=== PATIENT | female | born 1955 | race Caucasian/White ===

== ENCOUNTER → 2022-04-02 14:57 | Outpatient (BNVA) | payer MEDICARE, SELFPAY | PROVIDERS: PCP Family Medicine; Visit Provider Surgery | DX: N63.20 Unspecified lump in the left breast, unspecified quadrant (principal) | CPT/HCPCS: 99203 ==

== ENCOUNTER 2022-04-08 13:31 | Outpatient (CLI) | payer MEDICARE, SELFPAY ==
--- NOTE | 2022-04-08 | US_ITS ---
WS: [id number] BILATERAL 3D TOMOSYNTHESIS DIGITAL DIAGNOSTIC MAMMOGRAPHY WITH CAD CLINICAL INFORMATION: N63.20 - Unspecified lump in the left breast, unspecified... TECHNIQUE: Bilateral CC, MLO, and ML views. FINDINGS: Scattered fibroglandular densities bilaterally. Irregular heterogeneous spiculated mass in the upper outer LEFT breast in the area of palpable concern. This measures approximately 3.2 x 2.9 x 5.2 cm extends from the 1 to 3:00 position. Spiculated mass involves a large portion portion of the upper outer quadrant. Ultrasound described below. No visualized abnormalities RIGHT breast. ULTRASOUND BREAST BILATERAL TECHNIQUE: Ultrasound bilateral breast focused area of concern. CLINICAL INFORMATION: N63.20 - Unspecified lump in the left breast, unspecified... FINDINGS: RIGHT BREAST: No abnormalities RIGHT breast 4 to 6:00 position. LEFT BREAST: Large shadowing irregular hypoechoic LEFT breast mass extending from the 1-3 o'clock positions measuring 3.4 x 2.2 x 3.6 cm centered at the 2:00 position. Findings highly suspicious for neoplasm. No abnormal appearing lymph nodes in the LEFT axilla. MM/[place] [id number] IMPRESSION: BI-RADS: 5-Highly Suggestive of Malignancy FOLLOW UP: US Guided Biopsy Recommended Recommend ultrasound-guided biopsy LEFT breast mass. Dictated By: Alexander Olivera MD Signed By: Alexander Olivera MD Signed Date/Time: 04/09/22 1236 MTDD
--- NOTE | 2022-04-08 13:36 | US_ITS ---
WS: [id number] See diagnostic mammography report
--- NOTE | 2022-04-08 13:36 | MM_ITS ---
WS: [id number] BILATERAL 3D TOMOSYNTHESIS DIGITAL DIAGNOSTIC MAMMOGRAPHY WITH CAD CLINICAL INFORMATION: N63.20 - Unspecified lump in the left breast, unspecified... TECHNIQUE: Bilateral CC, MLO, and ML views. FINDINGS: Scattered fibroglandular densities bilaterally. Irregular heterogeneous spiculated mass in the upper outer LEFT breast in the area of palpable concern. This measures approximately 3.2 x 2.9 x 5.2 cm ext ends from the 1 to 3:00 position. Spiculated mass involves a large portion portion of the upper outer quadrant. Ultrasound described below. No visualized abnormalities RIGHT breast. ULTRASOUND BREAST BILATERAL TECHNIQUE: Ultrasound bilateral breast focused area of concern. CLINICAL INFORMATION: N63.20 - Unspecified lump in the left breast, unspecified... FINDINGS: RIGHT BREAST: No abnormalities RIGHT breast 4 to 6:00 position. LEFT BREAST: Large shadowing irregular hypoechoic LEFT breast mass extending from the 1-3 o'clock pos itions measuring 3.4 x 2.2 x 3.6 cm centered at the 2:00 position. Findings highly suspicious for supriya plasm. No abnormal appearing lymph nodes in the LEFT axilla. MM/[place] [id number] IMPRESSION: BI-RADS: 5-Highly Suggestive of Malignancy FOLLOW UP: US Guided Biopsy Recommended Recommend ultrasound-guided biopsy LEFT breast mass.
== END 2022-04-08 13:32 | disposition home or self-care (01) ==
LOC: RAD 13:31
PROVIDERS: PCP Family Medicine; Visit Provider Family Medicine
DX: N63.10 Unspecified lump in the right breast, unspecified quadrant (principal); N63.25 Unspecified lump in the left breast, overlapping quadrants
CPT/HCPCS: 76642; 77062; G0279

== ENCOUNTER → 2022-04-23 14:46 | Outpatient (BNVA) | payer MEDICARE, SELFPAY | PROVIDERS: PCP Family Medicine; Visit Provider Family Medicine | DX: N63.20 Unspecified lump in the left breast, unspecified quadrant (principal); F17.200 Nicotine dependence, unspecified, uncomplicated; Z87.898 Personal history of other specified conditions; Z92.89 Personal history of other medical treatment; N64.59 Other signs and symptoms in breast | CPT/HCPCS: 71046 ==

== ENCOUNTER 2022-04-30 12:42 | Outpatient (CLI) | payer MEDICARE, SELFPAY ==
--- NOTE | 2022-04-30 12:57 | US_ITS ---
WS: [id number] ULTRASOUND-GUIDED LEFT BREAST BIOPSY HISTORY: Solid mass. BI-RADS 5. COMPARISON: 04/08/2022 Procedure, risks and complications are explained to the patient. Medications are reviewed. Consent is obtained. The mass in the LEFT breast is localized with ultrasound. Mass localizes to 2:00. Skin is cleansed wi th ChloraPrep and anesthetized with 1% buffered lidocaine. Small dermatome is made. Under sterile con ditions mass is biopsied with a 14-gauge Achieve needle. Multiple core biopsies are performed. Materi al placed in formalin and sent to pathology for review. No complications encountered. Breast tissue marker (Mo-DV ultrasound enhanced ribbon): Single. Patient left the radiology suite with no complications. Patient is instructed to return [place] [facility] [place] [facility] with any concerns. US/[place] [id number] IMPRESSION: 1. Uncomplicated core needle biopsy LEFT breast mass at 2:00. 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 Breast pr ofile will be performed and reported separately. RECOMMENDATION: Follow-up with oncology, surgeon and primary care physician.
[2022-05-07 10:46] LABS: Breast Profile ER,PR,HER2,Ki-6 See Report
== END 2022-04-30 12:43 | disposition home or self-care (01) ==
PROVIDERS: PCP Family Medicine; Visit Provider Family Medicine
DX: R92.8 Other abnormal and inconclusive findings on diagnostic imaging of breast (principal); N63.21 Unspecified lump in the left breast, upper outer quadrant; C50.412 Malignant neoplasm of upper-outer quadrant of left female breast
CPT/HCPCS: 19083; 88305; 88361; 88374

== ENCOUNTER → 2022-05-01 14:52 | Outpatient (BNVA) | payer MEDICARE, SELFPAY | PROVIDERS: PCP Family Medicine; Visit Provider Surgery | DX: C50.912 Malignant neoplasm of unspecified site of left female breast (principal) | CPT/HCPCS: 99213 ==

== ENCOUNTER → 2022-05-08 09:49 | Outpatient (BNVA) | payer MEDICARE, SELFPAY | PROVIDERS: PCP Family Medicine; Visit Provider Family Medicine | DX: N64.59 Other signs and symptoms in breast (principal); Z79.899 Other long term (current) drug therapy; Z87.898 Personal history of other specified conditions; Z92.89 Personal history of other medical treatment; I44.7 Left bundle-branch block, unspecified; R10.9 Unspecified abdominal pain; N63.20 Unspecified lump in the left breast, unspecified quadrant; N63.10 Unspecified lump in the right breast, unspecified quadrant; F17.200 Nicotine dependence, unspecified, uncomplicated; L82.1 Other seborrheic keratosis; C50.912 Malignant neoplasm of unspecified site of left female breast | CPT/HCPCS: 80053; 80061; 80074; 83036; 84443; 84484; 85025; 86480 ==

== ENCOUNTER 2022-05-21 07:38 | Oncology outpatient (recurring) (ONCR) | payer MEDICARE, SELFPAY | END 2022-06-04 23:59 | disposition home or self-care (01) | PROVIDERS: PCP Family Medicine; Visit Provider Internal Medicine Hematology & Oncology | DX: C50.812 Malignant neoplasm of overlapping sites of left female breast (principal); Z17.0 Estrogen receptor positive status [ER+]; M54.50 Low back pain, unspecified; Z79.818 Long term (current) use of other agents affecting estrogen receptors and estrogen levels | CPT/HCPCS: 99204 ==

== ENCOUNTER 2022-06-19 07:34 | Oncology outpatient (recurring) (ONCR) | payer MEDICARE, SELFPAY ==
[2022-06-19 07:52] LABS: Basophils # 0.1 10^3/uL (0.0-0.1); Basophils % 0.8 %; Eosinophils # 0.2 10^3/uL (0.0-0.8); Eosinophils % 1.6 %; Hemoglobin 14.7 g/dL (11.5-15.3); Lymphocytes # 3.5 10^3/uL (0.8-4.8); Lymphocytes % 30.6 %; Mean Corpuscular HGB Conc 32.7 g/dL (30.0-36.0); Mean Corpuscular Hemoglobin 29.8 pg (28.0-34.0); Mean Corpuscular Volume 91.1 fl (81-99); Mean Platelet Volume 9.5 fL (7.4-10.4); Monocytes % 8.7 %; Neutrophils # 6.69 10^3/uL (1.8-7.7); Nucleated Red Blood Cells % 0 %; Platelet Count 383 10^3/cmm (130-400); Red Blood Count 4.94 10^6/uL (4.1-5.3); Red Cell Distribution Width 12.4 % (12.1-15.1); White Blood Count 11.6 10^3/uL (4.0-10.0)
[2022-06-19 08:16] LABS: Alanine Aminotransferase 11 U/L (0-33); Albumin Level 4.3 g/dL (3.5-5.2); Alkaline Phosphatase 94 U/L (35-105); Anion Gap 14.6 (5-19); Aspartate Amino Transferase 12 U/L (0-32); Blood Urea Nitrogen 15 mg/dL (8-23); Calcium 9.6 mg/dL (8.5-10.5); Carbon Dioxide 29 mmol/L (22-29); Chloride 100 mmol/L (98-107); Globulin 3.2 g/dL (1.3-4.6); Glucose 90 mg/dL (65-115); Osmolality Calculated 288 mOsm/kg (285-295); Potassium 4.6 mmol/L (3.5-5.1); Sodium 139 mmol/L (136-145); Total Bilirubin 0.4 mg/dL (0.15-1.2); Total Protein 7.5 g/dL (6.6-8.7)
== END 2022-07-02 23:59 | disposition home or self-care (01) ==
PROVIDERS: PCP Family Medicine; Visit Provider Internal Medicine Hematology & Oncology
DX: C50.812 Malignant neoplasm of overlapping sites of left female breast (principal); Z17.0 Estrogen receptor positive status [ER+]; Z79.811 Long term (current) use of aromatase inhibitors; D72.820 Lymphocytosis (symptomatic); F17.210 Nicotine dependence, cigarettes, uncomplicated; Z79.899 Other long term (current) drug therapy
CPT/HCPCS: 36415; 80053; 85025; 99214

== ENCOUNTER 2022-07-22 07:42 | Outpatient (CLI) | payer MEDICARE, SELFPAY ==
--- NOTE | 2022-07-22 08:15 | US_ITS ---
WS: [id number] Left breast ultrasound, 07/22/2022 Clinical Data: follow up Comparison: Left breast ultrasound, 04/30/2022 Findings: The left breast was surveyed in the upper outer quadrant at 2:00. There is a well-defined lesion jacinto uring 0.68 x 0.79 x 1.48 cm. The border is well-defined. There is uniform echotexture within the lesi on. US/US breast LT limited* [id number] Impression: No change in upper outer quadrant lesion in the 2:00 position. Recommend clinical follow-up BIRADS: 6-Known Biopsy-Proven Malignancy FOLLOW UP: See Report
== END 2022-07-22 07:43 | disposition home or self-care (01) ==
LOC: RAD 07:46
PROVIDERS: PCP Family Medicine; Visit Provider Internal Medicine Hematology & Oncology
DX: C50.412 Malignant neoplasm of upper-outer quadrant of left female breast (principal)
CPT/HCPCS: 76642

== ENCOUNTER 2022-07-25 14:42 | Oncology outpatient (recurring) (ONCR) | payer MEDICARE, SELFPAY ==
[2022-07-25 15:02] LABS: Basophils # 0.1 10^3/uL (0.0-0.1); Basophils % 0.8 %; Eosinophils # 0.5 10^3/uL (0.0-0.8); Eosinophils % 3.7 %; Hematocrit 44.5 % (37.0-47.0); Hemoglobin 14.3 g/dL (11.5-15.3); Lymphocytes # 4.5 10^3/uL (0.8-4.8); Lymphocytes % 33.5 %; Mean Corpuscular HGB Conc 32.1 g/dL (30.0-36.0); Mean Corpuscular Hemoglobin 29.9 pg (28.0-34.0); Mean Corpuscular Volume 92.9 fl (81-99); Mean Platelet Volume 9.7 fL (7.4-10.4); Monocytes # 1.1 10^3/uL (0.2-0.9); Monocytes % 8.1 %; Neutrophils # 7.16 10^3/uL (1.8-7.7); Neutrophils % 53.7 %; Nucleated Red Blood Cells % 0 %; Platelet Count 325 10^3/cmm (130-400); Red Blood Count 4.79 10^6/uL (4.1-5.3); Red Cell Distribution Width 12.7 % (12.1-15.1); White Blood Count 13.3 10^3/uL (4.0-10.0)
== END 2022-08-02 23:59 | disposition home or self-care (01) ==
PROVIDERS: PCP Family Medicine; Visit Provider Internal Medicine Hematology & Oncology
DX: C50.812 Malignant neoplasm of overlapping sites of left female breast (principal); Z17.0 Estrogen receptor positive status [ER+]; Z79.811 Long term (current) use of aromatase inhibitors; F17.210 Nicotine dependence, cigarettes, uncomplicated; Z79.899 Other long term (current) drug therapy
CPT/HCPCS: 85025; 99214

== ENCOUNTER → 2022-08-07 15:44 | Outpatient (BNVA) | payer MEDICARE, SELFPAY | PROVIDERS: PCP Family Medicine; Visit Provider Surgery | DX: C50.912 Malignant neoplasm of unspecified site of left female breast (principal) | CPT/HCPCS: 99213 ==

== ENCOUNTER 2022-08-16 08:52 | Day surgery (SDC) | payer MEDICARE, SELFPAY ==
[2022-08-15 09:09] VITALS: BMI 24.6
[2022-08-16] VITALS (12 sets, daily range): BP systolic 112–186; BP diastolic 80–118; PULSE 54–77; RESP 12–18; TEMP 36.1–36.8; O2SAT 92–100
[2022-08-16] MEDS: sodium chloride 0.9% 1,000 ML 30 ML IV (10:27)
[2022-08-16] MEDS: vancomycin 1,000 MG in sodium chloride 0.9% 250 ML 250 MG IV (11:05)
--- NOTE | 2022-08-16 11:06 | PC.NURSE ---
Patient was injected with 1.08 mCi Tc99m Tilmanocept Lymphoseek at 11:00 by KHOI Healy in the 12:00 position of the left breast. Zero complications. Patient tolerated procedure well.
--- NOTE | 2022-08-16 11:24 | W.PM.OPSUD ---
Surgery/Procedure H&P Update DATE OF PROCEDURE: August 16, 2022 DATE H&P PERFORMED: 08/07/22 H&P UPDATE INFORMATION: I have reviewed H&P completed within last 30 days, I have examined patient prior to procedure and No changes to prior documentation PREOP DIAGNOSIS: Left breast cancer PLANNED PROCEDURE: Operation Date: 08/16/22 11:40 [place] p [id number] left simple mastectomy with sentinel lymh node bx C50.912(Left) - Yobani Melgar DO s Sentinal Lymph Node Biopsy(Left) - Yobani Melgar DO
--- NOTE | 2022-08-16 11:51 | P.ANESASSM_ITS ---
Pre-Anesthetic Assessment Height/Weight: Height 1.75 m Weight 75.75 kg Temp Pulse Resp BP Pulse Ox O2 Del Method 98.3 F 71 18 159/118 93 Room Air 08/16/22 10:03 08/16/22 10:03 08/16/22 10:03 08/16/22 10:03 08/16/22 10:03 08/16/22 10:22 Preop Diagnosis: Left breast cancer Operation Date: 08/16/22 11:40 Pro[place] Procedures p [id number] left simple mastectomy with sentinel lymh node bx C50.912(Left) - DO ladarius Berumen Sentinal Lymph Node Biopsy(Left) - Yobani Melgar DO Familial anesthetic complications: none Was Beta Bianka taken within 24 hours: N/A Was Clonidine taken within 24 hours: N/A Last intake: Intake Last Liquid Date 08/15/22 Last Liquid Time 23:00 Last Solid Date 08/15/22 Last Solid Time 23:00 Social Tobacco and No alcohol Exam alert, oriented x 3 and regular rate & rhythm Airway Submandibular: within normal limits Cervical ROM: within normal limits Mallampati: Class II Dentition: false Pulmonary Chronic Obstructive Pulmonary Disease CV/HEM LBBB Anesthetic Plan ASA status: 2 Anesthesia: General Medications/Allergies Home Medications Medication Instructions Recorded Confirmed Last Taken Type anastrozole 1 mg tablet (Arimidex) 1 mg PO DAILY #90 tabs 06/19/22 08/16/22 08/15/22 Rx mecobalamin (vitamin B12) 1,000 1,000 mcg sublingual DAILY 06/19/22 08/16/22 08/15/22 History mcg disintegrating tablet,sublingual multivitamin 1 tab PO DAILY 06/19/22 08/16/22 08/15/22 History omega-3 acid ethyl esters 1 gram 1 cap PO DAILY 06/19/22 08/16/22 08/15/22 History capsule calcium carbonate 500 mg calcium See Rx Instructions PO DAILY 07/25/22 08/16/22 08/15/22 History (1,250 mg) tablet cholecalciferol (vitamin D3) 10 See Rx Instructions PO DAILY 07/25/22 08/16/22 08/15/22 History mcg (400 unit) capsule Allergies Allergy/AdvReac Type Severity Reaction Status Date / Time Penicillins Allergy Mild rash Verified 08/16/22 10:10 Current Medications Generic Name Dose Route Start Last Admin Trade Name Freq PRN Reason Stop Dose Admin Sodium Chloride 1,000 mls @ 30 mls/hr 08/16/22 10:15 08/16/22 10:27 Sodium Chloride 0.9% IV 08/17/22 10:14 30 mls/hr .Q24H LILA Administration PFSH Anesthesia Medical History Breast cancer, left History of nonmelanoma skin cancer Surgical History History of hysterectomy Family History Denies family history of Diabetes CAD (coronary artery disease) Clotting disorder Dementia Hyperlipidemia Chronic kidney disease (CKD) Anesthesia complication Bleeding disorder Lung disease Cancer Hypertension Stroke Social History Smoking and tobacco status: current every day smoker cigarettes [ Other cigarette details: working on quiting ] and e-cigarettes E-Cigarette Details: e- cigarette Quit status (tobacco): considering quitting Alcohol intake: never Lives independently: Yes Household members: family Housing: House Marital status: Number of children: 1 Number of grandchildren: 4 service: No Current occupational status: employed 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
[2022-08-16] MEDS: isosulfan blue 10 mg/mL SDV 5mL SUBCUT (12:20)
[2022-08-16] MEDS: lidocaine-epi 2% 20 mL INJ INJECTION (12:48)
--- NOTE | 2022-08-16 14:53 | ANE.PACU2 ---
Inpatient post-anesthesia follow up: Airway intact: Yes Vital signs: Temperature 97.0 F Pulse Rate 64 Respiratory Rate 16 Blood Pressure 182/89 Pulse Oximetry 95 Oxygen Delivery Me thod Room Air Oxygen Flow Rate 6 Fraction of Inspir ed Oxygen Hydration adequate: Yes Nausea and vomiting: No Pain level: 2 Mental status: Baseline
[2022-08-16] MEDS: metoprolol tartrate 1 mg/1 mL SDV 5 mL 5 MG IVP (15:02)
--- NOTE | 2022-08-16 15:06 | ECG_ITS ---
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 Measurements Intervals Drummond Rate: 57 P: 67 MD: 209 QRS: -15 QRSD: 162 T: 185 QT: 511 QTc: 498 Interpretive Statements SINUS BRADYCARDIA LEFT BUNDLE BRANCH BLOCK [120+ ms QRS DURATION, 80+ ms Q/S IN V1/V2, 85+ ms R IN I/aVL/V5/V6] No previous ECG available for comparison Electronically Signed On 08-17-2022 10:31:37 CDT by Hardik Blum M.D. [id number]
[2022-08-16] MEDS: oxyCODONE-APAP 5-325 mg Tablet 1 TAB PO (15:41)
[2022-08-16] MEDS: ondansetron 2 mg/ML SDV 2 mL 4 MG IVP ×2 (16:02→16:05)
--- NOTE | 2022-08-19 07:07 | P.OP_ITS ---
Operative Report Date of procedure: August 19, 2022 Pre-op diagnosis: Preop Diagnosis Left breast cancer Post-op diagnosis: same Procedure done: Left simple mastectomy with left axillary sentinel lymph node biopsy Implants: Malou, 19 Armenian Darin drain Specimens removed/disposition: Left axillary sentinel lymph nodes Left simple mastectomy-Short stitch wilson medial, long stitch wilson lateral Surgeon: Dr. Yobani Melgar, Anesthesia: General Estimated blood loss (mL): 50 Complications: None apparent Brief History: This is a very pleasant 66-year-old female with left breast cancer. She elected for a left simple mastectomy with left axillary sentinel lymph node biopsy. The risks and benefits were explained and documented. Procedure: The patient was wheeled into the operative room and placed on the OR table in the supine position. The left breast and axilla were inspected prepped and draped in the usual sterile fashion. A timeout was performed. All present were in agreement. Lymphazurin blue was injected subareolarly and into the mass. These areas were massaged for 5 minutes. An oblique excision was made from medial to the latissimus dorsi to lateral to the sternum, encompassing the nipple. The lateral dissection was performed first. I dissected down to the latissimus dorsi and superior to the fascia using Bovie cautery. Using Bovie cautery and Jannie counter I looked for a sentinel node. The Jannie counter at the mass was registering at 327 and 2 sentinel lymph nodes were identified measuring between 135 and 62. The highest count lymph node was the largest and was also blue. The smaller lymph node was not blue. The lymph nodes were removed with Bovie cautery, clipping any small arteries, and sent to pathology on formalin. Attention was then brought back to the mastectomy. I started with the superior flap and removed all the breast tissue using Bovie cautery. This was carried up to the clavipectoral fascia and down to the pectoralis major. All breast tissue was removed laterally to the latissimus dorsi and proximally to the sternum. I then went to the inferior flap all breast tissue was removed with Bovie cautery down to the inframammary fold. I did not come very close to the mass and it was not visualized as the breast was removed en bloc. I carried the dissection down to the pectoralis major and removed all the breast tissue in its entirety. Hemostasis was achieved with electrocautery and medium sized clips. The breast was removed and a short stitch was placed on the medial margin and a long stitch was placed laterally. The specimen was passed off. The surgical field was irrigated and suctioned. All small bleeding sites were cauterized with electrocautery. Malou was then placed into the surgical field. A 19 Armenian Darin drain was then placed underneath the skin and sewn into place using 3-0 silk. Dermis was then approximated with 3-0 Vicryl in interrupted f ashion. Skin was then closed with 4-0 Monocryl in a subcuticular running fashion. Skin glue was applied. Patient tolerated the procedure well and was wheeled in the postoperative anesthesia care unit in good condition.
== END 2022-08-16 16:10 | disposition home or self-care (01) ==
PROVIDERS: PCP Family Medicine; Visit Provider Surgery
PROC: (CPT 19303; principal; 2022-08-16 11:40)
PROC: (CPT 19303; 2022-08-16 11:40)
DX: C50.412 Malignant neoplasm of upper-outer quadrant of left female breast (principal); Z17.0 Estrogen receptor positive status [ER+]; J44.9 Chronic obstructive pulmonary disease, unspecified; I44.7 Left bundle-branch block, unspecified; F17.210 Nicotine dependence, cigarettes, uncomplicated
CPT/HCPCS: 19303; 38525; 38792; 88307; 88309; 88342; 93005; A9520; J0330; J1100; J1170; J2405; J2704; J3010; J3370; J3490; J7030; J7050; Q9968

== ENCOUNTER → 2022-08-28 14:56 | Outpatient (BNVA) | payer MEDICARE, SELFPAY | PROVIDERS: PCP Family Medicine; Visit Provider Surgery | DX: Z98.890 Other specified postprocedural states (principal); C50.912 Malignant neoplasm of unspecified site of left female breast; Z90.10 Acquired absence of unspecified breast and nipple | CPT/HCPCS: 99024 ==

== ENCOUNTER 2022-09-25 13:28 | Oncology outpatient (recurring) (ONCR) | payer MEDICARE, SELFPAY ==
[2022-09-25 14:22] LABS: Basophils # 0.1 10^3/uL (0.0-0.1); Basophils % 0.8 %; Eosinophils # 0.4 10^3/uL (0.0-0.8); Eosinophils % 3.7 %; Hematocrit 45.2 % (37.0-47.0); Hemoglobin 14.9 g/dL (11.5-15.3); Lymphocytes # 4.1 10^3/uL (0.8-4.8); Lymphocytes % 37.2 %; Mean Corpuscular Hemoglobin 30.7 pg (28.0-34.0); Mean Corpuscular Volume 93.2 fl (81-99); Monocytes # 0.8 10^3/uL (0.2-0.9); Monocytes % 7.4 %; Neutrophils # 5.56 10^3/uL (1.8-7.7); Neutrophils % 50.7 %; Nucleated Red Blood Cells % 0 %; Platelet Count 315 10^3/cmm (130-400); Red Blood Count 4.85 10^6/uL (4.1-5.3)
[2022-09-25 14:37] LABS: Alanine Aminotransferase 14 U/L (0-33); Albumin Level 4.4 g/dL (3.5-5.2); Alkaline Phosphatase 99 U/L (35-105); Anion Gap 13.1 (5-19); Aspartate Amino Transferase 14 U/L (0-32); Blood Urea Nitrogen 13 mg/dL (8-23); Calcium 9.9 mg/dL (8.5-10.5); Carbon Dioxide 29 mmol/L (22-29); Chloride 102 mmol/L (98-107); Globulin 3.2 g/dL (1.3-4.6); Glucose 89 mg/dL (65-115); Osmolality Calculated 290 mOsm/kg (285-295); Potassium 4.1 mmol/L (3.5-5.1); Sodium 140 mmol/L (136-145); Total Bilirubin 0.4 mg/dL (0.15-1.2); Total Protein 7.6 g/dL (6.6-8.7)
== END 2022-10-02 23:59 | disposition home or self-care (01) ==
PROVIDERS: PCP Family Medicine; Visit Provider Internal Medicine Hematology & Oncology
DX: C50.812 Malignant neoplasm of overlapping sites of left female breast (principal); Z17.0 Estrogen receptor positive status [ER+]; Z79.811 Long term (current) use of aromatase inhibitors; F17.210 Nicotine dependence, cigarettes, uncomplicated; Z79.899 Other long term (current) drug therapy; Z90.12 Acquired absence of left breast and nipple
CPT/HCPCS: 36415; 80053; 85025; 99213

== ENCOUNTER 2022-10-23 15:10 | Outpatient (CLI) | payer MEDICARE, SELFPAY ==
--- NOTE | 2022-10-23 15:30 | XR_ITS ---
WS: [id number] SCREENING DEXA SCAN [facility] CLINICAL INFORMATION: on aromatase inhibitor, post menopausal COMPARISON: None. FINDINGS: The L1-L4 bone mineral density measures 0.915 g/cm2. This corresponds to a T score score of -2.2 and Z score of -1.0. Left femoral neck bone mineral density measures 0.919 g/cm2. This corresponds to a T score of -0.7 an d Z score of 0.3. Right femoral neck bone mineral density measures 0.852 g/cm2. This corresponds to a T score -1.2of an d Z score of -0.2. Mean femoral neck bone mineral density measures 0.886 g/cm2. This corresponds to a T score of -1.0 an d Z score of 0.0. XR/XR DEXA axial skeleton* 86307 IMPRESSION: Osteopenia lumbar spine. Osteopenia femoral necks lower end of the range. Patient's FRAX calculated 10 year probability for major osteoporotic fracture i s 9.1 % and osteoporotic hip fracture is 1.0%.
== END 2022-10-23 15:11 | disposition home or self-care (01) ==
LOC: RAD 15:15
PROVIDERS: PCP Family Medicine; Visit Provider Nurse Practitioner Family
DX: Z78.0 Asymptomatic menopausal state (principal); M85.88 Other specified disorders of bone density and structure, other site
CPT/HCPCS: 77080

== ENCOUNTER 2023-04-16 15:12 | Outpatient (CLI) | payer MEDICARE, SELFPAY ==
--- NOTE | 2023-04-16 15:34 | MM_ITS ---
WS: [id number] RIGHT 3D TOMOSYNTHESIS DIGITAL MAMMOGRAPHY WITH CAD CLINICAL INFORMATION: HX OF BREAST CANCER HISTORY: LEFT mastectomy COMPARISON: 2021 TECHNIQUE: 3 views of the right breast were obtained. FINDINGS: Scattered fibroglandular densities of the right breast. No suspicious focal mass, asymmetry, calcifications, or architectural distortion. No evidence of jarett gnancy. IMPRESSION: MM/[place] [id number] BI-RADS: 1-Negative FOLLOW UP: 1 Year Follow-up Recommend return to annual diagnostic mammography.
== END 2023-04-16 15:13 | disposition home or self-care (01) ==
PROVIDERS: PCP Family Medicine; Visit Provider Nurse Practitioner Family
DX: Z85.3 Personal history of malignant neoplasm of breast (principal)
CPT/HCPCS: 77061; G0279

== ENCOUNTER → 2023-04-29 10:15 | Outpatient (BNVA) | payer MEDICARE, SELFPAY | PROVIDERS: PCP Family Medicine; Visit Provider Nurse Practitioner Family | DX: L57.0 Actinic keratosis (principal); L82.0 Inflamed seborrheic keratosis; L85.3 Xerosis cutis; L57.8 Other skin changes due to chronic exposure to nonionizing radiation; L81.4 Other melanin hyperpigmentation | CPT/HCPCS: 17000; 17110; 99213 ==

== ENCOUNTER 2023-05-01 15:24 | Oncology outpatient (recurring) (ONCR) | payer MEDICARE, SELFPAY ==
[2023-05-01 16:09] LABS: Basophils # 0.1 10^3/uL (0.0-0.1); Basophils % 0.9 %; Eosinophils # 0.3 10^3/uL (0.0-0.8); Eosinophils % 3.2 %; Hematocrit 42.3 % (36-47); Lymphocytes # 4.4 10^3/uL (0.8-4.8); Lymphocytes % 41.2 %; Mean Corpuscular HGB Conc 33.1 g/dL (30-55); Mean Corpuscular Hemoglobin 30.6 pg (27-33); Mean Corpuscular Volume 92.4 fl (85-98); Mean Platelet Volume 9.7 fL (7.4-10.4); Monocytes # 0.8 10^3/uL (0.2-0.9); Monocytes % 7.7 %; Neutrophils # 5.04 10^3/uL (1.8-7.7); Neutrophils % 46.8 %; Nucleated Red Blood Cells % 0 %; Platelet Count 310 10^3/cmm (157-399); Red Blood Count 4.58 10^6/uL (3.85-5.65); Red Cell Distribution Width 12.7 % (12.1-15.1); White Blood Count 10.76 10^3/uL (3.29-11.43)
[2023-05-01 16:28] LABS: Alanine Aminotransferase 15 U/L (0-33); Albumin Level 4.2 g/dL (3.5-5.2); Alkaline Phosphatase 120 U/L (35-105); Aspartate Amino Transferase 14 U/L (0-32); Blood Urea Nitrogen 17 mg/dL (8-23); Calcium 9.5 mg/dL (8.5-10.5); Carbon Dioxide 25 mmol/L (22-29); Chloride 102 mmol/L (98-107); Globulin 3.5 g/dL (1.3-4.6); Glomerular Filtration Rate 83.5 mL/min (90-130); Glucose 104 mg/dL (65-115); Osmolality Calculated 294 mOsm/kg (285-295); Sodium 141 mmol/L (136-145); Total Bilirubin 0.2 mg/dL (0.15-1.2); Total Protein 7.7 g/dL (6.6-8.7)
[2023-05-01 16:38] LABS: Anion Gap 17.9 (5-19); Potassium 3.9 mmol/L (3.5-5.1)
[2023-05-01 16:44] LABS: 25 Hydroxy Vitamin D 30 ng/mL (30-100)
== END 2023-05-04 23:59 | disposition home or self-care (01) ==
PROVIDERS: Nurse Practitioner Family; PCP Family Medicine; Visit Provider Internal Medicine Hematology & Oncology
DX: C50.812 Malignant neoplasm of overlapping sites of left female breast (principal); Z17.0 Estrogen receptor positive status [ER+]; Z79.811 Long term (current) use of aromatase inhibitors; F17.210 Nicotine dependence, cigarettes, uncomplicated; Z79.899 Other long term (current) drug therapy
CPT/HCPCS: 36415; 80053; 82306; 85025; 99214

== ENCOUNTER → 2023-06-05 12:07 | Outpatient (BNVA) | payer MEDICARE, SELFPAY | PROVIDERS: PCP Family Medicine; Visit Provider Surgery | DX: R79.89 Other specified abnormal findings of blood chemistry (principal); Z13.6 Encounter for screening for cardiovascular disorders; Z79.899 Other long term (current) drug therapy | CPT/HCPCS: 80053; 80061; 81001; 82306; 83036; 84443; 85025; 99214 ==

== ENCOUNTER 2023-06-25 11:07 | Day surgery (SDC) | payer MEDICARE, SELFPAY ==
[2023-06-25 11:34] VITALS: BP 137/89; PULSE 75; RESP 18; TEMP 36.6; O2SAT 95; BMI 28.0
[2023-06-25] MEDS: sodium chloride 0.9% 1,000 ML 30 ML IV (11:51)
--- NOTE | 2023-06-25 12:05 | ANES.PREANE2 ---
Pre-Anesthetic Assessment Height/Weight: Height 1.75 m Weight 86.183 kg Temp Pulse Resp BP Pulse Ox O2 Del Method 97.8 F 75 18 137/89 95 Room Air 06/25/23 11:34 06/25/23 11:34 06/25/23 11:34 06/25/23 11:34 06/25/23 11:34 06/25/23 11:34 Operation Date: 06/25/23 12:30 Proposed Procedures p Colonoscopy/70249: colonoscopy G0121: screeen a colon at risk Z12.11 encounter for screening for malignant neoplasm of colon(Not Applicable) - Yobani Melgar, DO Was Beta Bianka taken within 24 hours: N/A Was Clonidine taken within 24 hours: N/A Last intake: Intake Last Liquid Date 06/25/23 Last Liquid Time 08:00 Last Solid Date 06/23/23 Last Solid Time 18:00 Last Intake: 22:00 Social No alcohol Medications/Allergies Home Medications Medication Instructions Recorded Confirmed Last Taken Type multivitamin 1 tab PO DAILY 06/19/22 06/23/23 06/24/23 History omega-3 acid ethyl esters 1 gram 1 cap PO DAILY 06/19/22 06/23/23 06/24/23 History capsule calcium carbonate 500 mg calcium 600 mg PO DAILY 07/25/22 06/23/23 06/24/23 History (1,250 mg) tablet anastrozole 1 mg tablet (Arimidex) 1 mg PO DAILY #90 tabs 09/23/22 06/23/23 06/24/23 Rx biotin 5,000 mcg chewable tablet 5,000 mcg PO DAILY 06/23/23 06/23/23 06/24/23 History cholecalciferol (vitamin D3) 125 125 mcg PO DAILY 06/23/23 06/23/23 06/24/23 History mcg (5,000 unit) tablet (Vitamin D3) mecobalamin (vitamin B12) 2,500 2,500 mcg PO DAILY 06/23/23 06/23/23 06/24/23 History mcg chewable tablet Allergies Allergy/AdvReac Type Severity Reaction Status Date / Time Penicillins Allergy Mild rash Verified 06/10/23 13:16 Current Medications Generic Name Dose Route Start Last Admin Trade Name Freq PRN Reason Stop Dose Admin Sodium Chloride 1,000 mls @ 30 mls/hr 06/25/23 11:30 06/25/23 11:51 Sodium Chloride 0.9% IV 06/26/23 11:29 30 mls/hr .Q24H LILA Administration PFSH Anesthesia Medical History Edema Elevated TSH Colon cancer screening Post-menopausal History of nonmelanoma skin cancer Breast cancer, left Surgical History History of mastectomy History of hysterectomy Family History Denies family history of Diabetes CAD (coronary artery disease) Clotting disorder Dementia Hyperlipidemia Chronic kidney disease (CKD) Anesthesia complication Bleeding disorder Lung disease Cancer Hypertension Stroke Social History Smoking and tobacco/nicotine status: former use of tobacco/nicotine Quit status (tobacco/nicotine): has quit using Year quit tobacco: 2021 Alcohol intake: never Substance/Drug Use: never Lives independently: Yes Household members: family Housing: House Marital status: Number of children: 1 Number of grandchildren: 4 service: No Current occupational status: employed 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
--- NOTE | 2023-06-25 12:08 | P.ANESASSM_ITS ---
Pre-Anesthetic Assessment Height/Weight: Height 1.75 m Weight 86.183 kg Temp Pulse Resp BP Pulse Ox O2 Del Method 97.8 F 75 18 137/89 95 Room Air 06/25/23 11:34 06/25/23 11:34 06/25/23 11:34 06/25/23 11:34 06/25/23 11:34 06/25/23 11:34 Operation Date: 06/25/23 12:30 Proposed Procedures p Colonoscopy/79839: colonoscopy G0121: screeen a colon at risk Z12.11 encounter for screening for malignant neoplasm of colon(Not Applicable) - Yobani Melgar, DO Was Beta Bianka taken within 24 hours: N/A Was Clonidine taken within 24 hours: N/A Last intake: Intake Last Liquid Date 06/25/23 Last Liquid Time 08:00 Last Solid Date 06/23/23 Last Solid Time 18:00 Last Intake: 22:00 Social No alcohol quit smoking 1 yr ago Exam alert, oriented x 3, clear to auscultation bilaterally and regular rate & rhythm Airway Submandibular: within normal limits Cervical ROM: within normal limits Mallampati: Class II History/ROS No significant history except as noted Pulmonary Chronic Obstructive Pulmonary Disease CV/HEM hx LBBB None reported Hepatic None reported GI None reported Metabolic Thyroid Disease [facility] [place] None reported Neuropsych None reported Anesthetic Plan ASA status: 2 Anesthesia: MAC Risk of > 500 ml blood loss (7ml/kg in children): Yes, adequate IV access and fluids planned Medications/Allergies Home Medications Medication Instructions Recorded Confirmed Last Taken Type multivitamin 1 tab PO DAILY 06/19/22 06/23/23 06/24/23 History omega-3 acid ethyl esters 1 gram 1 cap PO DAILY 06/19/22 06/23/23 06/24/23 History capsule calcium carbonate 500 mg calcium 600 mg PO DAILY 07/25/22 06/23/23 06/24/23 History (1,250 mg) tablet anastrozole 1 mg tablet (Arimidex) 1 mg PO DAILY #90 tabs 09/23/22 06/23/23 06/24/23 Rx biotin 5,000 mcg chewable tablet 5,000 mcg PO DAILY 06/23/23 06/23/23 06/24/23 History cholecalciferol (vitamin D3) 125 125 mcg PO DAILY 06/23/23 06/23/23 06/24/23 History mcg (5,000 unit) tablet (Vitamin D3) mecobalamin (vitamin B12) 2,500 2,500 mcg PO DAILY 06/23/23 06/23/23 06/24/23 History mcg chewable tablet Allergies Allergy/AdvReac Type Severity Reaction Status Date / Time Penicillins Allergy Mild rash Verified 06/10/23 13:16 Current Medications Generic Name Dose Route Start Last Admin Trade Name Freq PRN Reason Stop Dose Admin Sodium Chloride 1,000 mls @ 30 mls/hr 06/25/23 11:30 06/25/23 11:51 Sodium Chloride 0.9% IV 06/26/23 11:29 30 mls/hr .Q24H LILA Administration PFSH Anesthesia Medical History Edema Elevated TSH Colon cancer screening Post-menopausal History of nonmelanoma skin cancer Breast cancer, left Surgical History History of mastectomy History of hysterectomy Family History Denies family history of Diabetes CAD (coronary artery disease) Clotting disorder Dementia Hyperlipidemia Chronic kidney disease (CKD) Anesthesia complication Bleeding disorder Lung disease Cancer Hypertension Stroke Social History Smoking and tobacco/nicotine status: former use of tobacco/nicotine Quit status (tobacco/nicotine): has quit using Year quit tobacco: 2021 Alcohol intake: never Substance/Drug Use: never Lives independently: Yes Household members: family Housing: House Marital status: Number of children: 1 Number of grandchildren: 4 service: No Current occupational status: employed 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
--- NOTE | 2023-06-25 12:34 | W.PM.OPSUD ---
Surgery/Procedure H&P Update DATE OF PROCEDURE: June 25, 2023 DATE H&P PERFORMED: 06/05/23 H&P UPDATE INFORMATION: I have reviewed H&P completed within last 30 days, I have examined patient prior to procedure and No changes to prior documentation PLANNED PROCEDURE: Operation Date: 06/25/23 12:30 Proposed Procedures p Colonoscopy/26098: colonoscopy G0121: screeen a colon at risk Z12.11 encounter for screening for malignant neoplasm of colon(Not Applicable) - Yobani Melgar DO
[2023-06-25 13:20] VITALS: BP 127/93; PULSE 112; RESP 12; TEMP 36.1; O2SAT 93
[2023-06-25 13:25] VITALS: BP 118/94; PULSE 116; RESP 18; O2SAT 94
--- NOTE | 2023-06-25 13:45 | ANE.PACU2 ---
Inpatient post-anesthesia follow up: Airway intact: Yes Vital signs: Temperature 97.0 F Pulse Rate 116 Respiratory Rate 18 Blood Pressure 118/94 Pulse Oximetry 94 Oxygen Delivery Me thod Room Air Oxygen Flow Rate Fraction of Inspir ed Oxygen Hydration adequate: Yes Nausea and vomiting: No Pain level: 1 Mental status: Baseline
== END 2023-06-25 13:49 | disposition home or self-care (01) ==
PROVIDERS: PCP Family Medicine; Visit Provider Surgery
PROC: 0DJD8ZZ Inspection of Lower Intestinal Tract, Via Natural or Artificial Opening Endoscopic (ICD-10-PCS; CPT 45378; principal; 2023-06-25 12:30)
DX: Z12.11 Encounter for screening for malignant neoplasm of colon (principal); D12.2 Benign neoplasm of ascending colon; K51.40 Inflammatory polyps of colon without complications; J44.9 Chronic obstructive pulmonary disease, unspecified; Z87.891 Personal history of nicotine dependence; Z85.3 Personal history of malignant neoplasm of breast
CPT/HCPCS: 45385; 88305; J2704; J3490; J7030

== ENCOUNTER → 2023-07-14 11:10 | Outpatient (BNVA) | payer MEDICARE, SELFPAY | PROVIDERS: PCP Family Medicine; Visit Provider Surgery | DX: D37.4 Neoplasm of uncertain behavior of colon (principal) | CPT/HCPCS: 99212 ==

== ENCOUNTER → 2023-07-28 13:55 | Outpatient (BNVA) | payer MEDICARE, SELFPAY | PROVIDERS: PCP Family Medicine; Visit Provider Nurse Practitioner Family | DX: I49.9 Cardiac arrhythmia, unspecified (principal); I44.7 Left bundle-branch block, unspecified | CPT/HCPCS: 93005 ==

== ENCOUNTER 2023-12-02 12:35 | Oncology outpatient (recurring) (ONCR) | payer MEDICARE, SELFPAY ==
[2023-12-02 12:24] LABS: Basophils # 0.1 10^3/uL (0.0-0.1); Basophils % 0.8 %; Eosinophils # 0.2 10^3/uL (0.0-0.8); Eosinophils % 2.4 %; Hematocrit 45.2 % (36-47); Lymphocytes # 2.8 10^3/uL (0.8-4.8); Lymphocytes % 27.9 %; Mean Corpuscular Hemoglobin 30.5 pg (27-33); Mean Corpuscular Volume 92.6 fl (85-98); Mean Platelet Volume 9.8 fL (7.4-10.4); Monocytes % 9.8 %; Neutrophils # 5.79 10^3/uL (1.8-7.7); Neutrophils % 58.9 %; Nucleated Red Blood Cells % 0 %; Platelet Count 283 10^3/cmm (157-399); Red Blood Count 4.88 10^6/uL (3.85-5.65); White Blood Count 9.85 10^3/uL (3.29-11.43)
[2023-12-02 12:48] LABS: Alanine Aminotransferase 15 U/L (0-33); Albumin Level 4.4 g/dL (3.5-5.2); Alkaline Phosphatase 113 U/L (35-105); Anion Gap 15.2 (5-19); Aspartate Amino Transferase 15 U/L (0-32); Blood Urea Nitrogen 17 mg/dL (8-23); Calcium 9.7 mg/dL (8.5-10.5); Carbon Dioxide 28 mmol/L (22-29); Chloride 102 mmol/L (98-107); Globulin 3.5 g/dL (1.3-4.6); Glomerular Filtration Rate 83.2 mL/min (90-130); Glucose 90 mg/dL (65-115); Osmolality Calculated 293 mOsm/kg (285-295); Potassium 4.2 mmol/L (3.5-5.1); Sodium 141 mmol/L (136-145); Total Bilirubin 0.3 mg/dL (0.15-1.2); Total Protein 7.9 g/dL (6.6-8.7)
[2023-12-02 13:02] LABS: 25 Hydroxy Vitamin D 41 ng/mL (30-100)
== END 2023-12-03 23:59 | disposition home or self-care (01) ==
PROVIDERS: Nurse Practitioner Family; PCP Nurse Practitioner Family; Visit Provider Internal Medicine Hematology & Oncology
DX: C50.412 Malignant neoplasm of upper-outer quadrant of left female breast (principal); E55.9 Vitamin D deficiency, unspecified; M85.80 Other specified disorders of bone density and structure, unspecified site; N63.10 Unspecified lump in the right breast, unspecified quadrant; Z79.899 Other long term (current) drug therapy; Z17.0 Estrogen receptor positive status [ER+]
CPT/HCPCS: 36415; 80053; 82306; 85025; 99214

== ENCOUNTER 2023-12-30 07:52 | Oncology outpatient (recurring) (ONCR) | payer MEDICARE, SELFPAY ==
--- OUTSIDE RECORDS SUMMARY | 2023-12-30 07:52 | XMS_ITS ---
Author Name Unknown Organization [facility] ALLERGIES AND ADVERSE REACTIONS No information ASSESSMENT No information CHIEF COMPLAINT No information Vital Signs Bpsitting Date Temperature Weight Height Spo2 Respiration Bmi Ti merecorded Pulse 98/68 11/28/19 23 12:00:0 0 AM 97 39,4.00 3,6 97 24 15.6 14:18 80 OBJECTIVE DATA No information PHYSICAL EXAMINATION No information TREATMENT PLAN No information PROBLEMS No information RESULTS No information REVIEW OF SYSTEMS No information SUBJECTIVE DATA No information MEDICATIONS No information
== END 2024-01-03 23:59 | disposition home or self-care (01) ==
PROVIDERS: PCP Nurse Practitioner Family; Visit Provider Internal Medicine Hematology & Oncology
DX: Z53.9 Procedure and treatment not carried out, unspecified reason; C50.412 Malignant neoplasm of upper-outer quadrant of left female breast; Z17.0 Estrogen receptor positive status [ER+]; M89.8X0 Other specified disorders of bone, multiple sites
CPT/HCPCS: 99214

== ENCOUNTER 2023-12-30 08:21 | Outpatient (CLI) | payer MEDICARE, SELFPAY ==
--- NOTE | 2023-12-30 | ECG_ITS ---
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 Interpretive Statements NAME OF STUDY: LEXISCAN SESTAMIBI STRESS TEST INDICATION: [Chest Pain; Shortness of Breath, ] Procedure: At the baseline, the blood pressure was 143/105 mmHg with a heart rate of 95 bpm. The electrocardiogram showed atrial fibrillation with left bundle branch block. The Lexiscan was infused over a period of 20 seconds. A total of 0.4 mg of Lexiscan was infused. The stress phase was continued for a total of 5 minutes. Heart rate was at the end of stress phase was 83 bpm and a blood pressure of 144/83 mmHg. The EKG at the peak infusion revealed normal sinus rhythm with no significant ST-T wave changes. Sestamibi was injected 20 seconds after the Lexiscan infusion. Blood pressure at the end of recovery phase was 151/88 mmHg with a heart rate of 88 bpm. Conclusion: 1. Normal EKG response to Lexiscan infusion 2. No Lexiscan induced chest pain or cardiac arrhythmia. 3. Normal blood pressure and heart rate response. 4. Sestamibi/sestamibi perfusion scan pending; see separate report. Electronically Signed On 01-02-2024 19:38:56 CDT by Hardik Blum M.D. [id number]
[2023-12-30 08:41] VITALS: BMI 27.6
--- NOTE | 2023-12-30 09:00 | NMCV_ITS ---
NM toby perf SPECT r/s* [id number] Sadie Mccormack Age: 68 Gender: F : 1955 Exam Date: 12/30/2023 09:38 Ordering Phys: Hardik Blum M.D ([email or web address]) Technologist: KHOI Harris Exam Location: [facility] Indications: CP, SOB STRESS TEST Please see separate stress test report in [facility] for full findings IMAGE PROTOCOL Rest/Stress 1 Lexiscan Day Radiopharmaceutical Dose (mCi) Administration Site Administered by Rest: Tc-99m 10.8 IV KHOI Harris Sestamibi Stress:Tc-99m 32.4 IV KHOI Harris Sestamibi Rest: 30-Dec-2023 60 Discovery 630 Stress: 30-Dec-2023 30 Discovery 630 0.4mg Lexiscan. Images obtained in supine and prone position. SPECT RESULTS Technical Quality: Excellent Raw Data Analysis: Normal Image Corrections: No attenuation or motion correction applied Summed Stress Score: 20 Summed Rest Score: 22 Summed Difference Score: 1 PERFUSION FINDINGS Large area of fixed perfusion defect seen in the apical, apical septal, inferior and inferolateral craven. Small area of reversibility is seen in the inferior wall. This is consistent with large area of prior infarct in the LAD and left circumflex artery territories. Large area of prior infarct with minimal nae-infarct ischemia is seen in the RCA territory. FUNCTIONAL RESULTS (calculated via Gated SPECT) Stress Image LV EF (%): 31 Stress EDV (mL):246 TID: 1.07 Stress ESV (mL):170 FUNCTIONAL FINDINGS: LV systolic function is severely reduced with EF of 31%. IMPRESSIONS 1. Abnormal myocardial perfusion imaging with large sized prior infarcts in LAD and Left circumflex artery territories. 2. Large area of prior infarct with small area of nae-infarct ischemia seen in the RCA territory 3. LV systolic function is severely reduced with EF of 31%. Hardik Blum MD (Electronically Signed) Final Date: 01 January 2024 09:17 S
[2023-12-30] MEDS: regadenoson 0.4 Mg/5 ml Syringe IVP (10:21)
[2023-12-30 10:43] VITALS: BP 151/88; PULSE 80
--- NOTE | 2023-12-30 11:30 | USCV_ITS ---
Sadie Mccormack Age: 68 Gender: F : 1955 Exam Date: 12/30/2023 11:35 Ordering Phys: Hardik Blum M.D ([email or web address]) Technologist: CT Exam Location: [facility] [place] Indication: Sob/cp BP: 152 / 77 HR: 69 Rhythm: Atrial fibrillation Technical Quality: Adequate MEASUREMENTS (Male / Female) Normal Values 2D ECHO LVOT Diameter 2.0 cm LV Ejection Fraction MOD 4C 31.1 % LV Ejection Fraction MOD 2C 15.9 % LV Ejection Fraction 2C AL 17.4 % LA Diameter 3.7 cm RA Systolic Volume 4C AL 33.4 ml RA Systolic Volume 4C MOD 32.3 ml LA Sys Volume AL 59.2 cm cubed LA Sys Volume Index AL 29.0 cm cubed/m squared Aorta at Sinotubular Diameter 2.1 cm IVC Diameter 2.3 cm M-MODE LA Ao Ratio MM 1.2 AV Cusp Separation MM 2.0 cm DOPPLER AV Peak Velocity 137.0 cm/s LVOT Peak Velocity 94.0 cm/s AV Area Cont Eq vti 2.4 cm squared AV Area Cont Eq pk 2.2 cm squared MV Peak Velocity 141.0 cm/s MV Area PHT 5.0 cm squared Mitral E to A Ratio 55.4 TV Peak Velocity 226.0 cm/s TR Peak Velocity 277.0 cm/s TR Peak Gradient 30.7 mmHg TV Peak E Velocity 82.0 cm/s Right Atrial Pressure 3.0 mmHg Pulmonary Artery Systolic Pressu 33.7 mmHg PV Peak Velocity 107.5 cm/s FINDINGS Left Ventricle Left ventricle is normal size. LV systolic function is severely reduced with EF of 25 to 30%. Severe global hypokinesis. Right Ventricle Grossly normal Right Atrium Normal in size Left Atrium Normal in size Mitral Valve Structurally normal mitral valve. Mild mitral regurgitation Aortic Valve Structurally normal aortic valve. No significant stenosis or regurgitation. Tricuspid Valve Mild tricuspid regurgitation. Pulmonary artery systolic pressure is normal. Pulmonic Valve Not well visualized Pericardium Normal Aorta Normal in size IVC Not well visualized. CONCLUSIONS LV systolic function is severely reduced with EF of 25-30% Mild mitral regurgitation Mild tricuspid regurgitation. No comparison studies are available. Hardik Blum MD (Electronically Signed) Final Date: 01 January 2024 09:24 S
== END 2023-12-30 08:22 | disposition home or self-care (01) ==
PROVIDERS: PCP Nurse Practitioner Family; Visit Provider Internal Medicine
DX: R06.09 Other forms of dyspnea (principal); R07.9 Chest pain, unspecified; R94.39 Abnormal result of other cardiovascular function study; C50.412 Malignant neoplasm of upper-outer quadrant of left female breast
CPT/HCPCS: 36415; 78452; 93017; 93306; 96374; 99214; A9500; J2785

== ENCOUNTER 2024-01-15 08:23 | Outpatient (CLI) | payer MEDICARE, SELFPAY ==
[2024-01-15] VITALS (16 sets, daily range): BP systolic 143–183; BP diastolic 80–112; PULSE 63–82; RESP 12–18; O2SAT 90–97; BMI 27.6
[2024-01-15] MEDS: diphenhydrAMINE 50 mg Capsule PO (09:00)
[2024-01-15] MEDS: aspirin 325 mg Tablet PO (09:00)
--- NOTE | 2024-01-15 09:00 | XACV_ITS ---
Exam Room: 2 Ht: 175 cm Wt: 85 kg BSA: 2.05 m2 Gender: Female : 1955 Any Known Allergies: Penicillins Exam Priority: Routine Procedure(s): Procedure Description: Diagnostic procedure Procedure Description: Left Heart Catheterization Procedure Description: Right Heart Catheterization Procedure Description: Left ventriculography Procedure Description: O2 saturation Procedure Description: Coronary Angiography Diagnostic Cath Status: Elective Diagnostic Findings * INDICATION: 68-year-old woman with past medical history of recently diagnosed atrial fibrillation who has been having shortness of breath and dyspnea on exertion. LV dysfunction was noted on echocardiogram with EF of 25 to 30%. Stress test is abnormal. Plan for right and left heart cath with possible PCI. Risks and benefits of the procedure were discussed in detail. * No disease noted in the Left Main, Left Anterior Descending, Right, or Circumflex coronary arteries. * Coronary angiography shows right dominance. Conclusions 1. Mildly elevated cardiac pressures. 2. No disease noted in the Left Main, Left Anterior Descending, Right, or Circumflex coronary arteries. 3. Moderate left ventricular systolic dysfunction. Ejection fraction of 35%. Recommendations * Aggressive guideline directed heart failure therapy. * Outpatient cardiology follow up in 1-2 weeks. Interventional RX Recommendation: PCI w/o planned CABG Diagnostic RX Recommendation: medical therapy and/or counseling Anticoagulation: Heparin Ventriculography Ejection Fraction: 35.0 % Pressures Phase:Rest AO : 145 / 75 ( 101 ) @ 11:37:00 AM 105 / 78 ( 93 ) @ 11:40:00 AM 108 / 82 ( 91 ) @ 11:46:00 AM 153 / 81 ( 108 ) @ 11:46:00 AM LV : 149 / 8 / 26 @ 11:44:00 AM 150 / 13 / 21 @ 11:46:00 AM RV : 39 / 2 / 11 @ 11:29:00 AM PA : 33 / 17 ( 24 ) @ 11:27:00 AM RA : a wave = 11 v wave = 10 mean = 9 @ 11:29:00 AM PCW : a wave = 17 v wave = 11 mean = 15 @ 11:27:00 AM O2 Content Phase:Rest PA : O2 Content O2: 62.0 @ 11:37:00 AM Saturations Phase:Rest AO : 89 @ 11:40:00 AM PA : 62 @ 11:37:00 AM Cardiac Output Phase:Rest Shalom : 4 @ 10:51:31 AM Shalom Cardiac Index: 2 @ 10:51:31 AM Flow Phase:Rest Qp : 4 @ 10:51:31 AM Qs : 4 @ 10:51:31 AM Clinical Evaluation EBL: 5mL-10mL Procedural Details Procedure Consent Obtained. Pre-Procedure Time Out. Identified patient by full name and date of as verbalized by the patient/guarantor. Does the consent match the physician's order: Yes. Accurate & Complete Informed Consent: Yes. Inpatient/Outpatient History & Physical on Chart: Yes. If H&P is completed, is and addenduem needed: No; If yes, is the addendum complete: N/A. Visualize and Verify Site with Patient/Guarantor: N/A. Relevant Radiology Images available: Yes. Pre-op teaching completed and patient verbalized understanding. The risks, benefits, and alternatives of sedation and/or procedure were discussed by physician. The patient agrees to continue. Procedure started. [facility] Clinical Fraility Score: 4: Vulnerable. Coroner Technician Indications: Other. Chest Pain Symptom Assessment: Atypical Angina. Correct patient, site and procedure confirmed by cath team. PERRLA. Strong, equal hand food quality tester bilaterally. Lungs clear x 5 lobes. IV Site on Arrival: 20 gauge in the right anticubital. IV Site on Arrival: 20 gauge in the right forearm. IV Fluids: 0.9% NaCl at KVO. 0 mL infused prior to microbiology lab assistant. Pre Procedural Pulses: bilateral dorsalis pedis was 2+. Pre Procedural Pulses: bilateral posterior tibial was 1+. Pre Procedural Pulses: bilateral radial was 3+. right groin was prepped with chloroprep then draped in the usual sterile fashion. right radial was prepped with chloroprep then draped in the usual sterile fashion. right brachial was prepped with chloroprep then draped in the usual sterile fashion. Physician notified. Baseline sample Acquired. HR: 85 BPM. Physician arrived. Physician scrubbed in. Immediate Pre-Procedure Time Out. Correct Patient: Yes; Correct Procedure: Yes; Correct Site: Yes; Correct Patient Position: Yes; Correct Supplies: Yes; Dried Flammable Prep: Yes; Blood Products Available: N/A;. Lidocaine 1% infiltrated to the right brachial. Sheath wire inserted through the right brachial IV catheter. IV catheter out OTW. Marydel-Eugenie MON catheter inserted. Oximetry samples were obtained. Normal venous range: 60-85%. Normal arterial range: 95-100%. Pressure measurements obtained. Marydel-Eugenie out. Lidocaine 1% infiltrated to the right radial. Arterial access obtained. Oxygen started at 3liters/min via nasal canula. A 5 burmese TIG catheter in over wire. Multiple views taken of left coronary artery. Catheter redirected to the RCA. Multiple views taken of right coronary artery. Catheter removed over the exchange wire. A 5 burmese Angled Pig catheter in over wire. EDP Sample taken: LV 149/8,26; HR: 70 BPM; SpO2: 95%. LV gram performed in VERONICA @ 10 mL/second for a total of 30 mL. EDP Sample taken: LV 150/13,21; HR: 85 BPM; SpO2: 94%. Catheter removed over the exchange wire. A Manual Compression was successful obtaining hemostatsis at the Right Brachial Vein insertion site. A TR Band was successful obtaining hemostatsis at the Right Radial artery insertion site. Post Procedure: Pulses reassessed and unchanged. PERRLA. Strong, equal hand food quality tester bilaterally. No VTE prophylaxis required. Medication's Wasted: Lidocaine 1% = 15 mL. Medication's Wasted: Nitro = 49.8 mcg. Medication's Wasted: Heparin = 1000 units. Complications: None. Estimated blood loss: 5mL-10mL. Responsiveness - Normal response to verbal stimuli; alert and oriented, PERRLA. Airway - Unaffected, no intervention required; spontaneous ventilation. Circulation: W/N/L, pulses unchanged. Nausea/Vomiting: No. Procedure completed. Patient transferred by wheelchair to CPRU. Vital chart was stopped. Access Site Site: Right Brachial Vein Sheath Size: 6 Fr Hemostasis Method: Manual Compression Hemostasis Success: Successful Site: Right Radial artery Sheath Size: 6 Fr Hemostasis Method: TR Band Hemostasis Success: Successful Procedure Medications Start: 10:23 AM Stop: 10:23 AM Medication: Versed Amount: 1 mg Route: I.V. Start: 10:23 AM Stop: 10:23 AM Medication: Fentanyl Amount: 50 mcg Route: I.V. Start: 10:33 AM Stop: 10:33 AM Medication: Nitrogylcerin Amount: 200 mcg Route: I.A. Start: 10:36 AM Stop: 10:36 AM Medication: Heparin Amount: 5000 units Route: I.V. Start: 10:37 AM Stop: 10:37 AM Medication: Versed Amount: 1 mg Route: I.V. Start: 10:37 AM Stop: 10:37 AM Medication: Fentanyl Amount: 50 mcg Route: I.V. I, the attending physician, have reviewed and verified all procedure medications. Yes, all medications given per verbal order History/Risk Factors Hypertension: Yes Dyslipidemia: No Peripheral Arterial Disease (PAD): No Myocardial Infarction (DE): No Obesity: No Renal Disease: No Tobacco Use: Former Prior Interventions PCI: No CABG: No Valve Surgery: No Report Signatures Finalized by Hardik Blum MD on 01/29/2024 12:03 PM
[2024-01-15 09:02] LABS: Basophils # 0.1 10^3/uL (0.0-0.1); Basophils % 0.7 %; Eosinophils # 0.2 10^3/uL (0.0-0.8); Hematocrit 41.6 % (36-47); Lymphocytes # 2.2 10^3/uL (0.8-4.8); Lymphocytes % 25.6 %; Mean Corpuscular HGB Conc 32.5 g/dL (30-55); Mean Corpuscular Hemoglobin 30.2 pg (27-33); Mean Corpuscular Volume 93.1 fl (85-98); Mean Platelet Volume 9.7 fL (7.4-10.4); Monocytes # 0.6 10^3/uL (0.2-0.9); Monocytes % 6.5 %; Neutrophils # 5.47 10^3/uL (1.8-7.7); Nucleated Red Blood Cells % 0 %; Platelet Count 290 10^3/cmm (157-399); Red Blood Count 4.47 10^6/uL (3.85-5.65); Red Cell Distribution Width 13.1 % (12.1-15.1); White Blood Count 8.43 10^3/uL (3.29-11.43)
[2024-01-15 09:21] LABS: Anion Gap 13.3 (5-19); Blood Urea Nitrogen 12 mg/dL (8-23); Calcium 9.7 mg/dL (8.5-10.5); Carbon Dioxide 28 mmol/L (22-29); Chloride 102 mmol/L (98-107); Glomerular Filtration Rate 99.4 mL/min (90-130); Glucose 107 mg/dL (65-115); Osmolality Calculated 288 mOsm/kg (285-295); Potassium 4.3 mmol/L (3.5-5.1); Sodium 139 mmol/L (136-145)
--- NOTE | 2024-01-15 10:10 | W.PM.OPSFHP ---
Same Day Surgery H&P Indication for Procedure/HPI DATE OF PROCEDURE: January 15, 2024 CHIEF COMPLAINT/INDICATIONFOR SURGICAL PROCEDURE: Shortness of breath PREOP DIAGNOSIS: LV dysfunction/abnorma stress test PLANNED PROCEDURE: Operation Date: 01/15/24 10:00 Proposed Procedures p Cardiac Catheterization - [facility] w/wo LV & Leonarda(Bilateral) - Hardik Blum M.D Possible percutaneous coronary intervention 68-year-old woman with past medical history of recently diagnosed atrial fibrillation who has been having shortness of breath and dyspnea on exertion. LV dysfunction was noted on echocardiogram with EF of 25 to 30%. Stress test is abnormal. Plan for right and left heart cath with possible PCI. Risks and benefits of the procedure were discussed in detail. Medications/Allergies* Home Medications Medication Instructions Recorded Confirmed Type multivitamin 1 tab PO DAILY 06/19/22 01/14/24 History omega-3 acid ethyl esters 1 gram 1 cap PO DAILY 06/19/22 01/14/24 History capsule calcium carbonate 600 mg PO DAILY 07/25/22 01/14/24 History biotin 5,000 mcg chewable tablet 5,000 mcg PO DAILY 06/23/23 01/14/24 History cholecalciferol (vitamin D3) 125 125 mcg PO DAILY 06/23/23 01/14/24 History mcg (5,000 unit) tablet (Vitamin D3) mecobalamin (vitamin B12) 2,500 2,500 mcg PO DAILY 06/23/23 01/15/24 History mcg chewable tablet Allergies/Adverse Reactions Allergy/AdvReac Type Severity Reaction Status Date / Time Penicillins Allergy Mild rash Verified 01/14/24 10:22 Current Medications: Generic Name Dose Route Start Last Admin Trade Name Freq PRN Reason Stop Dose Admin Sodium Chloride 1,000 mls @ 50 mls/hr 01/15/24 09:00 01/15/24 09:25 Sodium Chloride 0.9% IV 01/16/24 04:59 Not Given .Q20H ONE Pertinent History/Comorbid Conditions* Medical History (Updated 12/06/23 @ 15:10 by Nando Antoine MD) Arrhythmia Edema Elevated TSH Colon cancer screening Post-menopausal History of nonmelanoma skin cancer Breast cancer, left Surgical History (Updated 08/28/22 @ 15:50 by Yobani Melgar DO) History of mastectomy History of hysterectomy Family History (Updated 03/14/22 @ 08:55 by Coleen Leavitt LPN) Denies family history of Diabetes CAD (coronary artery disease) Clotting disorder Dementia Hyperlipidemia Chronic kidney disease (CKD) Anesthesia complication Bleeding disorder Lung disease Cancer Hypertension Stroke Social History Smoking and tobacco/nicotine status: former use of tobacco/nicotine (quit March 2022/still uses nicotine patches) Quit status (tobacco/nicotine): has quit using Year quit tobacco: 2021 Former quit date comment: total use 45+ years tobacco use Alcohol intake: never Substance/Drug Use: never Lives independently: Yes Household members: family Housing: House Marital status: Number of children: 1 Number of grandchildren: 4 service: No Current occupational status: employed 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 Pets and animals: Yes Pets & animals: dog(s) Current gender identity: Female Pertinent Exam Findings alert, oriented x 3, clear to auscultation bilaterally and regular rate & rhythm Conscious Sedation Assessment PATIENT ASSESSED PRIOR TO SEDATION, WITH NO CHANGE NOTED: Yes AIRWAY EVAL/ANESTHESIA PLAN: normal airway, ASA III, Risks, benefits & alternatives of sedation and/or procedure discussed and Patient agrees to continue as planned ADDITIONAL INFORMATION: Moderate sedation Recommendations Surgery/Procedure today Other Plans: Right heart cath/left heart cath with possible percutaneous coronary intervention Coding Level of Care Code Acute Code for Gilma Del Cid
[2024-01-15 10:42] LABS: Alveolar-Arterial Oxygen Gradi 4.3 mmHg (5-10); Arterial Blood Gas Hematocrit 40.3 % (37-47); Blood Gas Sample Site AO; Blood Gas Sample Type Arterial; Carboxyhemoglobin 0.9 %THgb (0.4-20.1); HGB O2 Sat 86.6 % (95-100); Methemoglobin 1.2 % (0.4-1.5); Total Hemoglobin 13.1 g/dL (12-16)
[2024-01-15 10:43] LABS: Blood Gas Operator Identificat AMH; Oxygen Device ROOM AIR
[2024-01-15 10:45] LABS: Arterial Blood Gas Hematocrit 31.7 % (37-47); Blood Gas Operator Identificat AMH; Blood Gas Sample Site PA; Blood Gas Sample Type Not specified; HGB O2 Sat 60.6 % (95-100); Methemoglobin 1.2 % (0.4-1.5); Oxygen Device ROOM AIR; Total Hemoglobin 10.3 g/dL (12-16)
--- NOTE | 2024-01-15 11:00 | PC.NURSE ---
Pt arrived to CPRU room 2 post cath. Patient alert and oriented, breathing even and non-labored. Denies pain. Placed on bedside quality assurance monitor final, pt rhythm in atrial fib , vital signs reviewed. Right radial TR band in place, site asymptomatic. No signs of bleeding or hematoma. Right brachial vein has compression dressing, dressing clean dry and intact.
--- NOTE | 2024-01-15 14:23 | PC.NURSE ---
TR band down at 1315. Right brachial venous site is asymptomatic. Site asymptomatic. No signs of bleeding or hematoma. Clean dressing placed on both sites.
== END 2024-01-15 14:27 | disposition home or self-care (01) ==
PROVIDERS: PCP Nurse Practitioner Family; Visit Provider Internal Medicine
DX: I11.0 Hypertensive heart disease with heart failure (principal); I50.20 Unspecified systolic (congestive) heart failure; I48.91 Unspecified atrial fibrillation; Z87.891 Personal history of nicotine dependence; Z85.3 Personal history of malignant neoplasm of breast
CPT/HCPCS: 36415; 80048; 82810; 85025; 93460; 96374; 99152; 99153; C1751; C1769; C1887; C1894; J1644; J2250; J3010; J3490; J7030; Q0163; Q9967

== ENCOUNTER → 2024-01-21 12:58 | Outpatient (BNVA) | payer MEDICARE, SELFPAY | PROVIDERS: PCP Nurse Practitioner Family; Visit Provider Nurse Practitioner Family | DX: I50.20 Unspecified systolic (congestive) heart failure (principal); Z87.891 Personal history of nicotine dependence | CPT/HCPCS: 99214 ==

== ENCOUNTER 2024-02-06 08:57 | Outpatient (CLI) | payer MEDICARE, SELFPAY ==
[2024-02-06 09:52] LABS: Anion Gap 12.8 (5-19); Blood Urea Nitrogen 16 mg/dL (8-23); Calcium 9.2 mg/dL (8.5-10.5); Carbon Dioxide 29 mmol/L (22-29); Chloride 101 mmol/L (98-107); Glomerular Filtration Rate 99.4 mL/min (90-130); Glucose 100 mg/dL (65-115); NT Pro B Type Natriuretic Pept 1462 pg/mL (0-125); Osmolality Calculated 287 mOsm/kg (285-295); Potassium 4.8 mmol/L (3.5-5.1); Sodium 138 mmol/L (136-145)
== END 2024-02-06 08:58 | disposition home or self-care (01) ==
LOC: LAB 08:59
PROVIDERS: PCP Nurse Practitioner Family; Visit Provider Nurse Practitioner Family
DX: I50.20 Unspecified systolic (congestive) heart failure (principal)
CPT/HCPCS: 36415; 80048; 83880

== ENCOUNTER 2024-02-25 07:42 | Outpatient (CLI) | payer MEDICARE, SELFPAY ==
--- NOTE | 2024-02-25 08:00 | NM_ITS ---
WS: [id number] NUCLEAR MEDICINE WHOLE BODY BONE SCAN HISTORY: breast cancer; bilateral hip pain; back pain COMPARISON: None available. TECHNIQUE: The patient was injected with 20.1 mCi of Technetium 99m MDP and serial whole-body scintig remi have been performed with anterior and posterior images. Focal increased uptake involving the LEFT acetabulum and possibly the hip joint. No photopenic defect . SI joints are symmetric bilaterally. Possible very minimal increased uptake along the medialmost ac etabulum of the RIGHT hip. The RIGHT hip changes are less distinct. No increased uptake within the spine or ribs. Mild bilateral AC joint arthropathy, RIGHT greater than LEFT. Normal soft tissue uptake. Renal activity is identified. NM/NM bone scan whole body* [id number] IMPRESSION: 1. Curvilinear increased uptake along the LEFT acetabulum and/or joint space o f the LEFT hip. No prior radiographs for comparison. Questionable minimal uptak e involving the medial RIGHT acetabulum. Recommend follow-up LEFT hip radiograp hs. CT or MRI may be of benefit also to evaluate for arthropathy. 2. No evidence for metastatic disease to the bones.
== END 2024-02-25 07:43 | disposition home or self-care (01) ==
LOC: RAD 07:44
PROVIDERS: PCP Nurse Practitioner Family; Visit Provider Internal Medicine Medical Oncology
DX: C50.412 Malignant neoplasm of upper-outer quadrant of left female breast (principal); R93.7 Abnormal findings on diagnostic imaging of other parts of musculoskeletal system; M25.551 Pain in right hip; M25.552 Pain in left hip; M54.9 Dorsalgia, unspecified
CPT/HCPCS: 78306; A9503

== ENCOUNTER 2024-03-03 11:01 | Oncology outpatient (recurring) (ONCR) | payer MEDICARE, SELFPAY | END 2024-03-04 23:59 | disposition home or self-care (01) | PROVIDERS: PCP Nurse Practitioner Family; Visit Provider Internal Medicine Hematology & Oncology | DX: Z90.12 Acquired absence of left breast and nipple; Z85.3 Personal history of malignant neoplasm of breast; Z08 Encounter for follow-up examination after completed treatment for malignant neoplasm; Z92.25 Personal history of immunosuppression therapy | CPT/HCPCS: 99214 ==

== ENCOUNTER → 2024-03-09 10:00 | Outpatient (BNVA) | payer MEDICARE, SELFPAY | PROVIDERS: PCP Nurse Practitioner Family; Visit Provider Nurse Practitioner Family | DX: I11.0 Hypertensive heart disease with heart failure (principal); I50.22 Chronic systolic (congestive) heart failure; Z87.891 Personal history of nicotine dependence | CPT/HCPCS: 36416; 80048; 83880; 99214 ==

== ENCOUNTER 2024-04-05 05:56 | Outpatient (CLI) | payer MEDICARE, SELFPAY ==
--- NOTE | 2024-04-05 06:15 | USCV_ITS ---
Sadie Mccormack Age: 68 Gender: F : 1955 Exam Date: 04/05/2024 06:31 Ordering Phys: Kala Villalpando Technologist: Exam Location: [facility] – [place] Indication: ef high risk meds BP: 130 / 80 HR: Rhythm: Sinus Technical Quality: Adequate MEASUREMENTS (Male / Female) Normal Values 2D ECHO LVOT Diameter 2.1 cm LV Ejection Fraction MOD 4C 28.0 % LV Ejection Fraction MOD 2C 47.6 % LV Ejection Fraction 2C AL 48.8 % LA Diameter 3.1 cm RA Systolic Volume 4C AL 42.8 ml RA Systolic Volume 4C MOD 39.8 ml LA Sys Volume AL 62.7 cm cubed LA Sys Volume Index AL 31.4 cm cubed/m squared Aorta at Sinotubular Diameter 3.4 cm M-MODE LA Ao Ratio MM 1.0 AV Cusp Separation MM 2.3 cm FINDINGS Left Ventricle Right Ventricle Right Atrium Left Atrium Mitral Valve Aortic Valve Tricuspid Valve Pulmonic Valve Pericardium Aorta IVC CONCLUSIONS This is limited echocardiogram performed to assess LV systolic function. LV systolic function is severely reduced with EF of 25 to 30%. Severe global hypokinesis seen. Compared to prior echocardiogram from 12/2023, no significant changes are seen Hardik Blum MD (Electronically Signed) Final Date: 05 April 2024 15:35 S
== END 2024-04-05 05:57 | disposition home or self-care (01) ==
PROVIDERS: PCP Nurse Practitioner Family; Visit Provider Nurse Practitioner Family
DX: I50.20 Unspecified systolic (congestive) heart failure (principal)
CPT/HCPCS: 93308

== ENCOUNTER 2024-05-03 12:06 | Oncology outpatient (recurring) (ONCR) | payer MEDICARE, SELFPAY ==
--- NOTE | 2024-05-03 12:30 | MM_ITS ---
WS: [id number] RIGHT 3D TOMOSYNTHESIS DIGITAL MAMMOGRAPHY WITH CAD CLINICAL INFORMATION: breast cancer HISTORY: LEFT breast mastectomy COMPARISON: 2022 TECHNIQUE: 3 views of the right breast were obtained. FINDINGS: Scattered fibroglandular densities of the right breast. No suspicious focal mass, asymmetry, calcifications, or architectural distortion. No evidence of jarett gnancy. MM/MM diag RT tomosynthesis [id number] IMPRESSION: DENSITY: There are scattered areas of fibroglandular density. BI-RADS: 1 - Negative. FOLLOW UP: 1 Year Follow-up Recommend return to annual diagnostic mammography.
== END 2024-05-04 23:59 | disposition home or self-care (01) ==
LOC: RAD 12:07 → ONCMED 05-04 09:33
PROVIDERS: PCP Nurse Practitioner Family; Visit Provider Internal Medicine Hematology & Oncology
DX: Z53.9 Procedure and treatment not carried out, unspecified reason (principal); C50.412 Malignant neoplasm of upper-outer quadrant of left female breast; Z17.0 Estrogen receptor positive status [ER+]; M89.8X0 Other specified disorders of bone, multiple sites; C50.812 Malignant neoplasm of overlapping sites of left female breast; Z79.811 Long term (current) use of aromatase inhibitors; F17.210 Nicotine dependence, cigarettes, uncomplicated; Z79.899 Other long term (current) drug therapy; E55.9 Vitamin D deficiency, unspecified; N63.10 Unspecified lump in the right breast, unspecified quadrant; M85.80 Other specified disorders of bone density and structure, unspecified site
CPT/HCPCS: 77061; G0279

== ENCOUNTER 2024-06-03 09:49 | Oncology outpatient (recurring) (ONCR) | payer MEDICARE, SELFPAY ==
[2024-06-03 10:40] LABS: Basophils # 0.1 10^3/uL (0.0-0.1); Eosinophils # 0.3 10^3/uL (0.0-0.8); Eosinophils % 3.6 %; Lymphocytes # 2.7 10^3/uL (0.8-4.8); Lymphocytes % 32.4 %; Mean Corpuscular HGB Conc 31.7 g/dL (30-55); Mean Corpuscular Hemoglobin 30.2 pg (27-33); Mean Corpuscular Volume 95.1 fl (85-98); Mean Platelet Volume 9.6 fL (7.4-10.4); Monocytes # 0.6 10^3/uL (0.2-0.9); Monocytes % 7.2 %; Neutrophils # 4.63 10^3/uL (1.8-7.7); Neutrophils % 55.6 %; Nucleated Red Blood Cells % 0 %; Platelet Count 379 10^3/cmm (157-399); Red Blood Count 4.31 10^6/uL (3.85-5.65); Red Cell Distribution Width 13.4 % (12.1-15.1); White Blood Count 8.33 10^3/uL (3.29-11.43)
[2024-06-03 11:28] LABS: 25 Hydroxy Vitamin D 29 ng/mL (30-100); Alanine Aminotransferase 9 U/L (0-33); Alkaline Phosphatase 126 U/L (35-105); Anion Gap 14.4 (5-19); Aspartate Amino Transferase 11 U/L (0-32); Blood Urea Nitrogen 13 mg/dL (8-23); Calcium 9.9 mg/dL (8.5-10.5); Carbon Dioxide 29 mmol/L (22-29); Chloride 102 mmol/L (98-107); Creatinine Clr Calc Pharmacy 78.0589; Globulin 3.8 g/dL (1.3-4.6); Glomerular Filtration Rate 83.2 mL/min (90-130); Glucose 104 mg/dL (65-115); Lactate Dehydrogenase 130 U/L (135-214); Osmolality Calculated 292 mOsm/kg (285-295); Potassium 4.4 mmol/L (3.5-5.1); Sodium 141 mmol/L (136-145); Total Bilirubin 0.4 mg/dL (0.15-1.2); Total Protein 7.8 g/dL (6.6-8.7)
== END 2024-06-04 23:59 | disposition home or self-care (01) ==
PROVIDERS: Internal Medicine Hematology & Oncology; PCP Nurse Practitioner Family; Visit Provider Internal Medicine
DX: Z08 Encounter for follow-up examination after completed treatment for malignant neoplasm (principal); Z85.3 Personal history of malignant neoplasm of breast; M85.80 Other specified disorders of bone density and structure, unspecified site; Z87.891 Personal history of nicotine dependence; Z92.23 Personal history of estrogen therapy; Z90.12 Acquired absence of left breast and nipple
CPT/HCPCS: 36415; 80053; 82306; 83615; 85025; 99213

== ENCOUNTER → 2024-06-04 09:53 | Outpatient (BNVA) | payer MEDICARE, SELFPAY | PROVIDERS: PCP Nurse Practitioner Family; Visit Provider Nurse Practitioner Family | DX: L82.1 Other seborrheic keratosis (principal); L81.4 Other melanin hyperpigmentation; Z08 Encounter for follow-up examination after completed treatment for malignant neoplasm; L57.0 Actinic keratosis; Z85.828 Personal history of other malignant neoplasm of skin | CPT/HCPCS: 17000; 99213 ==

== ENCOUNTER 2024-08-26 09:36 | Oncology outpatient (recurring) (ONCR) | payer MEDICARE, SELFPAY ==
[2024-08-26 10:58] LABS: Basophils # 0.1 10^3/uL (0.0-0.1); Basophils % 1.1 %; Eosinophils # 0.2 10^3/uL (0.0-0.8); Eosinophils % 2.9 %; Hematocrit 40.9 % (36-47); Lymphocytes # 2.6 10^3/uL (0.8-4.8); Lymphocytes % 34.2 %; Mean Corpuscular HGB Conc 31.8 g/dL (30-55); Mean Corpuscular Hemoglobin 29.7 pg (27-33); Mean Corpuscular Volume 93.6 fl (85-98); Mean Platelet Volume 9.7 fL (7.4-10.4); Monocytes # 0.7 10^3/uL (0.2-0.9); Monocytes % 8.7 %; Neutrophils # 3.98 10^3/uL (1.8-7.7); Nucleated Red Blood Cells % 0 %; Platelet Count 319 10^3/cmm (157-399); Red Blood Count 4.37 10^6/uL (3.85-5.65); White Blood Count 7.51 10^3/uL (3.29-11.43)
[2024-08-26 11:10] LABS: Erythrocyte Sedimentation Rate 16 mm/hr (0-15)
[2024-08-26 11:20] LABS: Alanine Aminotransferase 8 U/L (0-33); Albumin Level 4.1 g/dL (3.5-5.2); Alkaline Phosphatase 107 U/L (35-105); Anion Gap 12.9 (5-19); Aspartate Amino Transferase 13 U/L (0-32); Blood Urea Nitrogen 17 mg/dL (8-23); C Reactive Protein 11.3 mg/L (0.0-4.9); Calcium 9.8 mg/dL (8.5-10.5); Carbon Dioxide 29 mmol/L (22-29); Chloride 100 mmol/L (98-107); Creatinine Clr Calc Pharmacy 78.6373; Globulin 3.7 g/dL (1.3-4.6); Glomerular Filtration Rate 99.4 mL/min (90-130); Glucose 93 mg/dL (65-115); Lactate Dehydrogenase 126 U/L (135-214); Osmolality Calculated 285 mOsm/kg (285-295); Potassium 4.9 mmol/L (3.5-5.1); Sodium 137 mmol/L (136-145); Total Bilirubin 0.3 mg/dL (0.15-1.2); Total Protein 7.8 g/dL (6.6-8.7)
== END 2024-09-01 23:59 | disposition home or self-care (01) ==
LOC: ONCMED 09:37
PROVIDERS: PCP Nurse Practitioner Family; Visit Provider Internal Medicine
DX: Z08 Encounter for follow-up examination after completed treatment for malignant neoplasm (principal); Z85.3 Personal history of malignant neoplasm of breast; R03.0 Elevated blood-pressure reading, without diagnosis of hypertension; R70.0 Elevated erythrocyte sedimentation rate; Z87.891 Personal history of nicotine dependence; Z92.23 Personal history of estrogen therapy; Z90.12 Acquired absence of left breast and nipple
CPT/HCPCS: 80053; 83615; 85025; 85651; 86140; 99214

== ENCOUNTER → 2024-09-08 15:17 | Outpatient (BNVA) | payer MEDICARE, SELFPAY | PROVIDERS: PCP Nurse Practitioner Family; Visit Provider Internal Medicine | DX: I44.7 Left bundle-branch block, unspecified (principal); R06.09 Other forms of dyspnea; R00.2 Palpitations; I42.8 Other cardiomyopathies; Z87.891 Personal history of nicotine dependence | CPT/HCPCS: 99214 ==

== ENCOUNTER 2024-11-25 09:39 | Oncology outpatient (recurring) (ONCR) | payer MEDICARE, SELFPAY ==
[2024-11-25 11:04] LABS: Hematocrit 38.9 % (36-47); Hemoglobin 12.60 g/dL (11.27-16.99); Mean Corpuscular HGB Conc 32.4 g/dL (30-55); Mean Corpuscular Hemoglobin 30.4 pg (27-33); Mean Corpuscular Volume 93.7 fl (85-98); Nucleated Red Blood Cells % 0 %; Platelet Count 358 10^3/cmm (157-399); Red Blood Count 4.15 10^6/uL (3.85-5.65); White Blood Count 9.60 10^3/uL (3.29-11.43)
[2024-11-25 11:25] LABS: Alanine Aminotransferase 9 U/L (0-33); Albumin Level 4.0 g/dL (3.5-5.2); Alkaline Phosphatase 132 U/L (35-105); Anion Gap 16.5 (5-19); Aspartate Amino Transferase 11 U/L (0-32); Blood Urea Nitrogen 20 mg/dL (8-23); Calcium 10.0 mg/dL (8.5-10.5); Carbon Dioxide 25 mmol/L (22-29); Chloride 99 mmol/L (98-107); Creatinine Clr Calc Pharmacy 77.1650; Globulin 3.9 g/dL (1.3-4.6); Glucose 92 mg/dL (65-115); Osmolality Calculated 282 mOsm/kg (285-295); Potassium 5.5 mmol/L (3.5-5.1); Sodium 135 mmol/L (136-145); Total Protein 7.9 g/dL (6.6-8.7)
== END 2024-12-02 23:59 | disposition home or self-care (01) ==
PROVIDERS: PCP Nurse Practitioner Family; Visit Provider Internal Medicine
DX: Z08 Encounter for follow-up examination after completed treatment for malignant neoplasm (principal); Z85.3 Personal history of malignant neoplasm of breast; M85.80 Other specified disorders of bone density and structure, unspecified site; M25.559 Pain in unspecified hip; M25.569 Pain in unspecified knee; M35.3 Polymyalgia rheumatica; Z90.12 Acquired absence of left breast and nipple; Z92.23 Personal history of estrogen therapy; Z87.891 Personal history of nicotine dependence
CPT/HCPCS: 36415; 80053; 83615; 85025; 85651; 86140; 99213

== ENCOUNTER → 2025-03-21 13:33 | Outpatient (BNVA) | payer MEDICARE, SELFPAY | PROVIDERS: PCP Nurse Practitioner Family; Visit Provider Internal Medicine | DX: I44.7 Left bundle-branch block, unspecified (principal); R06.09 Other forms of dyspnea; R00.2 Palpitations | CPT/HCPCS: 99213 ==

== ENCOUNTER → 2025-04-21 11:24 | Outpatient (BNVA) | payer MEDICARE, SELFPAY | PROVIDERS: PCP Nurse Practitioner Family; Visit Provider Internal Medicine Rheumatology | DX: M81.0 Age-related osteoporosis without current pathological fracture (principal); M47.896 Other spondylosis, lumbar region | CPT/HCPCS: 36415; 72100; 72170; 80076; 82306; 82565; 83520; 85025; 85651; 86140; 86200; 86431; 86480; 86704; 86803; 87340; 99204 ==